=== PATIENT | female | born 1960 | race Caucasian/White ===

== ENCOUNTER → 2017-01-07 | Outpatient (CLI) | payer BC ==
[~2017-01-07] MED LIST: AMOX1TAB12 PO; ESTR0.5T3 PO; LSNP10T PO; SMV20T PO
[2017-01-07 09:57] LABS: BASOPHILS % (AUTO) 1 % (0-2); EOSINOPHILS # (AUTO) 0.2 10^3uL; EOSINOPHILS % (AUTO) 2 % (0-4); MEAN CORPUSCULAR HGB CONC 33.7 g/dL (31.0-37.0); MEAN CORPUSCULAR VOLUME 80 FL (80-100); MEAN PLATELET VOLUME 8.1 FL (6.0-9.5); MONOCYTES # (AUTO) 0.5 X10^3; MONOCYTES % (AUTO) 7 % (3-11); NEUTROPHILS % (AUTO) 64 % (51-67); PLATELET COUNT 316 10^3uL (150-450); WHITE BLOOD COUNT 7.77 10^3uL (4.0-11.0)
[2017-01-07 09:58] LABS: MEAN CORPUSCULAR HEMOGLOBIN 26.8 PG (26.0-34.0)
[2017-01-07 10:03] LABS: BILIRUBIN,URINE Negative (Negative); CLARITY,URINE Clear; COLOR,URINE Yellow; GLUCOSE, URINE (UA) Negative (Negative); LEUKOCYTE ESTERASE ,URINE Negative (Negative); PH,URINE 6.5 (5.0 - 8.0); UROBILINOGEN,URINE 0.2 mg/dL (0.2-1.0)
[2017-01-07 10:14] LABS: ALBUMIN 4.6 g/dL (3.4-5.0); ANION GAP 14.5 MEQ/L (3-15); CALCULATED IONIZED CALCIUM 3.9 mg/dL (3.8-4.6)
[2017-01-07 10:46] LABS: RBC,URINE 0-2 /HPF; URINE CENTRIFUGED VOLUME 12 mL
== END ==
LOC: LAB 09:47
PROVIDERS: ATTEND Family Medicine
DX: I10 Essential (primary) hypertension (principal); E78.2 Mixed hyperlipidemia; G25.0 Essential tremor
CPT/HCPCS: 36415; 80053; 80061; 81003; 81015; 84443; 85025